=== PATIENT | female | born 1955 | race Caucasian/White ===

== ENCOUNTER 2018-08-10 10:36 | Emergency (ER) | payer OTHER ==
--- NOTE | 2018-08-10 14:26 | ED Physician Documentation ---
History of Present Illness - Stated complaint Stated Complaint: HEAD PX/VISION CHANGES AND PRESSURE - Chief complaint Chief Complaint: Neuro - History obtained from History obtained from: Patient - History of Present Illness Timing: How many weeks ago (2) - Additonal information Additional information: 63-year-old female has developed a sharp stabbing or lancinating pain in the right faith area. She states the pain is confined to the faith area and part of her scalp and above her right eye and in front of her right ear. She has not broken out into a rash. She is complaining of some blurring of her vision. She denies double vision. She is not nauseated and she has no fever. She does state that she does not feel that she is under any stress but she does know that this is near the anniversary of her 's about 4 years ago. Review of Systems Constitutional: denies: Fever, Chills, Myalgias, Fatigue Eyes: reports: Other (blurring of vision of right eye). denies: Decreased vision, Photophobia Ears: denies: Loss of hearing, Ear pain Nose: denies: Rhinorrhea / runny nose, Congestion Throat: denies: Sore throat Cardiac: denies: Chest pain / pressure, Palpitations Respiratory: denies: Dyspnea, Cough GI: denies: Abdominal Pain, Nausea, Vomiting : denies: Dysuria, Frequency Skin: denies: Rash Musculoskeletal: reports: Neck pain. denies: Back pain, Extremity pain Neurologic: reports: Headache. denies: Generalized weakness, Focal weakness, Numbness, Head injury, LOC PD PAST MEDICAL HISTORY - Present Medications Home Medications: Ambulatory Orders Medication Instructions Recorded Confirmed Albuterol Sulf [Ventolin Hfa] 200 puffs INH 08/10/18 08/10/18 Valacyclovir HCl [Valacyclovir] 1,000 mg PO TID #15 tablet 08/10/18 - Allergies Allergies/Adverse Reactions: Allergies Allergy/AdvReac Type Severity Reaction Status Date / Time Sulfa (Sulfonamide Allergy Unknown Verified 08/10/18 11:05 Antibiotics) PD ED PE NORMAL - Vitals Vital signs reviewed: Yes (hypertensive ) - General General: Alert and oriented X 3, No acute distress, Well developed/nourished - HEENT HEENT: Atraumatic, PERRL, EOMI, Ears normal, Moist mucous membranes, Pharynx benign, Dentition benign - Neck Neck: Supple, no meningeal sign, No bony TTP - Cardiac Cardiac: RRR, No murmur - Respiratory Respiratory: No respiratory distress, Clear bilaterally - Abdomen Abdomen: Soft, Non tender - Back Back: No CVA TTP, No spinal TTP - Derm Derm: Normal color, Warm and dry, Other (over the right faith there is subtle erythema that is not present on the left faith. There is no skin breakdown. 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, No motor deficit, No sensory deficit, Normal speech Eye Opening: Spontaneous Motor: Obeys Commands Verbal: Oriented GCS Score: 15 - Psych Psych: Normal mood, Normal affect Results - Vitals Vitals: Vital Signs - 24 hr 08/10/18 11:03 Temperature 36.8 C Heart Rate 75 Respiratory 20 Rate Blood Pressure 136/99 H O2 Saturation 99 Oxygen O2 Source Room air - Rads (name of study) CT head without Radiology: Prelim report reviewed (Impression: Negative nonenhanced head CT.), EMP read indepedently, See rad report Procedures - Bedside sono Bedside sono by EMP: With use of bedside ultrasound the right retina is examined and there is no evidence of detachment. PD MEDICAL DECISION MAKING - ED course Complexity details: reviewed results, re-evaluated patient, considered differential, d/w patient ED course: 63-year-old female with a four-day history of lancinating pain in the right faith has subtle changes to the skin consistent with early shingles and her pain is consistent with this as well as the location. Her retina is examined without evidence of detachment and a CT scan of her head is done to rule out intracranial pathology. We will put her on a course of valacyclovir. Departure - Departure Disposition: 01 Home, Self Care Clinical Impression: Shingles Qualifiers: Herpes zoster complications: without complications Qualified Code(s): B02.9 - Zoster without complications Condition: Stable Instructions: ED Shingles Prescriptions: Valacyclovir HCl [Valacyclovir] 1,000 mg PO TID #15 tablet Forms: Activity restrictions
--- NOTE | 2018-08-10 14:58 | CT Report ---
Reason: right mu-ism pain blurring of vision Procedure Date: 08/10/2018 Accession Number: [id number] / [id number] Procedure: CT - HEAD WO CPT Code: FULL RESULT: EXAM: CT HEAD EXAM DATE: 08/10/2018 02:49 PM. CLINICAL HISTORY: Right mu-ism pain blurring of vision. COMPARISON: None. TECHNIQUE: Multiaxial CT images were obtained from the foramen magnum to the vertex. Reformats: Sagittal and coronal. IV contrast: None. In accordance with CT protocol optimization, one or more of the following dose reduction techniques were utilized for this exam: automated exposure control, adjustment of mA and/or KV based on patient size, or use of iterative reconstructive technique. FINDINGS: Parenchyma: No intraparenchymal hemorrhage. No evidence of mass, midline shift, or CT findings of infarction. Arroyo-white differentiation is distinct. Extraaxial Spaces: Normal for age. No subdural or epidural collections identified. Ventricles: Normal in size and position. Sinuses and Orbits: Imaged paranasal sinuses, orbits, and mastoids show no significant abnormality. Bones: No evidence of fracture or calvarial defect. Other: None. IMPRESSION: Negative nonenhanced head CT. RADIA
[2018-08-10 16:01] VITALS: BP 174/96
== END 2018-08-10 16:11 | disposition home or self-care (01) ==
LOC: ED 10:36
DX: B02.9 Zoster without complications (principal)
CPT/HCPCS: 70450; 99282; 99283

== ENCOUNTER 2019-09-09 17:39 | Outpatient (CLI) | payer OTHER | END 2019-09-09 17:40 | disposition home or self-care (01) | LOC: COV 17:39 | PROVIDERS: ATTEND Family Medicine | DX: R06.02 Shortness of breath (principal); R06.2 Wheezing; R53.83 Other fatigue; R68.83 Chills (without fever) | CPT/HCPCS: 81599 ==

== ENCOUNTER 2019-09-11 09:55 | Emergency (ER) | payer OTHER ==
[2019-09-11] MEDS ORDERED: LORazepam 1 MG TABLET PO STA (10:38)
[2019-09-11] MEDS ORDERED: DEXAMETHASONE 10 MG/ML VIAL PO STA (10:38)
[2019-09-11] MEDS ORDERED: CHERRY SYRUP 10 ML UDC PO ONE (10:38)
[2019-09-11] MEDS ORDERED: ALBUTEROL 1 PUFF INH STA (10:38)
--- NOTE | 2019-09-11 10:41 | ED Physician Documentation ---
PD HPI DYSPNEA - Stated complaint Stated Complaint: SOA - Chief complaint Chief Complaint: Resp - History obtained from History obtained from: Patient - History of Present Illness Timing - onset: How many weeks ago (1) Timing - onset during: Rest Timing - duration: Weeks (1) Timing - details: Gradual onset, Still present Inciting event(s): Emotional event Improved by: Inhaler/neb Worsened by: Allergens Associated symptoms: Wheezing, Anxiety Similar symptoms before: Diagnosis (asthma and anxiety) Recently seen: Not recently seen - Additional information Additional information: 64-year-old female with a history of asthma who uses her inhaler infrequently has had to start using her inhaler frequently over the past week. She has now developed some anxiety associated with this as well and she is feeling anxiety whenever she goes into her office to begin work. She is having some problem with her Internet connection and been able to do her work from her home that is frustrating to her. She has a history of anxiety and has previously taken medication for anxiety on a temporary basis. She is not producing any sputum has not had a fever does not feel like she is sick otherwise. She does have voice clearing which happens to her frequently when she has an asthma exacerbation. She has not been on a course of steroid for 2 years. Review of Systems Constitutional: denies: Fever, Chills, Myalgias Eyes: denies: Decreased vision Ears: denies: Ear pain Nose: denies: Rhinorrhea / runny nose, Congestion Throat: denies: Sore throat Cardiac: denies: Chest pain / pressure, Palpitations Respiratory: reports: Dyspnea, Wheezing. denies: Cough GI: denies: Abdominal Pain, Nausea, Vomiting : denies: Dysuria, Frequency Skin: denies: Rash Musculoskeletal: denies: Neck pain, Back pain, Extremity pain Neurologic: reports: Numbness (to the lips). 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, Breast implants - Present Medications Home Medications: Ambulatory Orders Medication Instructions Recorded Confirmed Albuterol Sulf [Ventolin Hfa 1 - 2 puffs INH Q4HR PRN 09/10/20 09/11/19 Inhaler] Lorazepam [Ativan] 1 mg PO Q6HR PRN #20 tablet 09/11/19 buPROPion [Wellbutrin Sr] 0 mg PO BID 09/11/19 09/11/19 predniSONE [Prednisone] 40 mg PO DAILY #10 tablet 09/11/19 - Allergies Allergies/Adverse Reactions: Allergies Allergy/AdvReac Type Severity Reaction Status Date / Time Sulfa (Sulfonamide Allergy Unknown Verified 09/11/19 10:33 Antibiotics) - Social History Does the pt smoke?: No Smoking Status: Never smoker Does the pt drink ETOH?: Yes Does the pt have substance abuse?: No - Immunizations Immunizations: TDAP >10years/unknown PD ED PE NORMAL - Vitals Vital signs reviewed: Yes (hypertensive ) - General General: Alert and oriented X 3, No acute distress, Well developed/nourished - HEENT HEENT: Atraumatic, PERRL, EOMI, Ears normal, Moist mucous membranes, Pharynx benign, Dentition benign - Neck Neck: Supple, no meningeal sign, No bony TTP - Cardiac Cardiac: RRR, No murmur - Respiratory Respiratory: No respiratory distress, Clear bilaterally - Abdomen Abdomen: Soft, Non tender - Back Back: No CVA TTP, No spinal TTP - Derm Derm: Normal color, Warm and dry, No rash - Extremities Extremities: No deformity, No edema - Neuro Neuro: Alert and oriented X 3, 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, No motor deficit, No sensory deficit, Normal speech Eye Opening: Spontaneous Motor: Obeys Commands Verbal: Oriented GCS Score: 15 - Psych Psych: Normal mood, Normal affect Results - Vitals Vitals: Vital Signs - 24 hr 09/11/19 09/11/19 09/11/19 10:05 11:00 11:15 Temperature 37.1 C Heart Rate 85 80 78 Respiratory 20 16 20 Rate Blood Pressure 136/81 H 116/82 H O2 Saturation 100 97 Oxygen O2 Source Room air PD MEDICAL DECISION MAKING - ED course Complexity details: reviewed results, re-evaluated patient, considered differential, d/w patient ED course: 64-year-old female who is developed an asthma exacerbation and she has developed some anxiety in the 2 of the conditions together have played off of each other worse and worse over the past week. She has come to the emergency department now requesting further treatment. She is having some improvement with her inhaler but not with her anxiety.She is administered albuterol with a spacer here in the emergency department and as well as Ativan. A chest x-ray is without evidence of infiltrate examination is without evidence of elements of infection. Departure - Departure Disposition: 01 Home, Self Care Clinical Impression: Anxiety Asthma exacerbation Qualifiers: Asthma severity: mild Asthma persistence: intermittent Qualified Code(s): J45.21 - Mild intermittent asthma with (acute) exacerbation Condition: Stable Instructions: ED Stress React, ED Reactive Airway Disease, ED Panic Attack Follow-Up: Courtney Moon PA-C [Primary Care Provider] - Prescriptions: Lorazepam [Ativan] 1 mg PO Q6HR PRN #20 tablet PRN Reason: Anxiety predniSONE [Prednisone] 40 mg PO DAILY #10 tablet Discharge Date/Time: 09/11/19 12:20
[2019-09-11 11:05] VITALS: BP 116/82
--- NOTE | 2019-09-11 11:24 | XRAY Report ---
Reason: chest pain Procedure Date: 09/11/2019 Accession Number: [id number] / [id number] Procedure: XR - Chest 1 View X-Ray CPT Code: 57477 Final Report FULL RESULT: EXAM: CHEST RADIOGRAPHY EXAM DATE: 09/11/2019 10:57 AM. CLINICAL HISTORY: Chest pain. COMPARISON: None. TECHNIQUE: 1 view. FINDINGS: Lungs/Pleura: No focal opacities evident. No pleural effusion. No pneumothorax. Mediastinum: Within exam limitations, the cardiomediastinal contour is normal. Other: Bilateral breast implants are present. IMPRESSION: Bilateral breast implants present, otherwise unremarkable exam. RADIA
== END 2019-09-11 12:20 | disposition home or self-care (01) ==
LOC: ED 09:55
DX: J45.21 Mild intermittent asthma with (acute) exacerbation (principal); F41.9 Anxiety disorder, unspecified; Z98.82 Breast implant status
CPT/HCPCS: 71045; 94640; 94664; 99283; 99284; A9270; J8499

== ENCOUNTER 2020-02-15 09:51 | Emergency (ER) | payer OTHER ==
--- NOTE | 2020-02-15 10:14 | ED Physician Documentation ---
History of Present Illness - Stated complaint Stated Complaint: CHEST PX - Chief complaint Chief Complaint: Cardiac - History obtained from History obtained from: Patient - Additonal information Additional information: Patient comes emergency department complaining of left breast pain that began 3 days ago after her dog late as had on her breast. Patient states she had silicone breast implants placed about 36 years ago and that they have given her no problems since. She has noticed a sweat slight "lump" in her breast, but has not noticed any distortion otherwise she has not noticed any redness or swelling. She states the dog did not lay its head down forcefully and she is not sure why it caused it to her. However, she states that the pain has not gone away since. It is worse if she moves in such a way that her breast moves. No other complaints at this time. No fevers, chills, cough, or deeper chest pain. No other injury. Review of Systems Ten Systems: 10 systems reviewed and negative Constitutional: denies: Fever, Chills Eyes: reports: Reviewed and negative Ears: reports: Reviewed and negative Nose: reports: Reviewed and negative Throat: reports: Reviewed and negative Cardiac: reports: Chest pain / pressure (Breast) Respiratory: denies: Dyspnea, Cough GI: reports: Reviewed and negative : reports: Reviewed and negative Skin: reports: Reviewed and negative Musculoskeletal: reports: Reviewed and negative Neurologic: reports: Reviewed and negative Psychiatric: reports: Reviewed and negative Endocrine: reports: Reviewed and negative Immunocompromised: reports: Reviewed and negative PD PAST MEDICAL HISTORY - Past Medical History Respiratory: Asthma Psych: Anxiety - Past Surgical History Past Surgical History: Yes 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, Breast implants - Present Medications Home Medications: Ambulatory Orders Medication Instructions Recorded Confirmed Albuterol Sulf [Ventolin Hfa 1 - 2 puffs INH Q4HR PRN 09/11/19 09/11/19 Inhaler] Lorazepam [Ativan] 1 mg PO Q6HR PRN #20 tablet 09/11/19 buPROPion [Wellbutrin Sr] 0 mg PO BID 09/11/19 09/11/19 predniSONE [Prednisone] 40 mg PO DAILY #10 tablet 09/11/19 - Allergies Allergies/Adverse Reactions: Allergies Allergy/AdvReac Type Severity Reaction Status Date / Time Sulfa (Sulfonamide Allergy Unknown Verified 09/11/19 10:33 Antibiotics) - Social History Does the pt smoke?: No Smoking Status: Never smoker Does the pt drink ETOH?: Yes Does the pt have substance abuse?: No - Immunizations Immunizations: TDAP >10years/unknown PD ED PE NORMAL - Vitals Vital signs reviewed: Yes - General General: Alert and oriented X 3, No acute distress - HEENT HEENT: Atraumatic, PERRL, EOMI, Moist mucous membranes - Neck Neck: Supple, no meningeal sign - Cardiac Cardiac: RRR, No murmur, Strong equal pulses - Respiratory Respiratory: No respiratory distress, Clear bilaterally - Abdomen Abdomen: Soft, Non tender, Non distended - Derm Derm: Normal color, Warm and dry, No rash, Other (No induration, mass, erythema, or edema of the left breast compared to the right.) - Extremities Extremities: No deformity - Neuro Neuro: Alert and oriented X 3 - Psych Psych: Normal mood, Normal affect PD ED PE EXPANDED - Free text exam Free text exam: Breasts are symmetrical bilaterally. No peau d'orange or nipple/areola distortion. No nipple discharge. No palpable mass. Patient does have symmetrical, palpable breast implants. No erythema or streaking. Results - Vitals Vitals: Vital Signs - 24 hr 02/15/20 02/15/20 02/15/20 10:03 10:06 11:28 Temperature 20.4 C L 36.8 C Heart Rate 77 71 75 Respiratory 16 16 16 Rate Blood Pressure 146/90 H 150/100 H 178/92 H O2 Saturation 99 98 98 Oxygen O2 Source Room air - EKG (time done) 1001 Rate: Rate (enter#) (71) Rhythm: NSR [place]: Normal Intervals: Normal NC QRS: Normal Ischemia: Normal ST segments, Non specific changes Compare to prior EKG: Old EKG unavailable Computer interpretation: Agree with computer - Rads (name of study) CXR Radiology: Final report received, EMP read indepedently, See rad report (neg) PD MEDICAL DECISION MAKING - ED course Complexity details: reviewed results, re-evaluated patient, considered differential, d/w patient ED course: Patient was worked up with chest x-ray and EKG, which were unremarkable. The pt stated to nursing staff that she had mainly come because she hoped to get her mammogram expedited. However, she was informed that we are unable to do anything to expedite mammo scheduling from the ED, and that she should continue to work with her PCP on this. I have discussed the case with US, who states that a mammogram will be much superior to a soft tissue US if no abscess is suspected. Pt has been advised of this, as original plan was to possibly get an US of the breast in the ED. We have discussed the usual indications for return. Departure - Departure Disposition: 01 Home, Self Care Clinical Impression: Breast pain Condition: Stable Comments: Your chest x-ray and EKG look good. Initially, our plan was to do a breast ultrasound here, but after discussing the matter with the breast specialist, it is better to just get a mammogram done. These are not done emergently from the emergency department, and you will need to continue with your plans to have one as an outpatient. Please continue the process of getting scheduled for this. There is no way to expedite this through the emergency department, and you will need to work with your primary doctor. At this point in time, there is no palpable mass/tumor, and there is no evidence of infection. Your breasts are symmetrical and there is no obvious evidence of damage to your breast implant. However, this cannot be fully evaluated without further appropriate imaging, in this case and mammogram. Discharge Date/Time: 02/15/20 11:29
--- NOTE | 2020-02-15 10:30 | XRAY Report ---
PROCEDURE: Chest 1 View X-Ray INDICATIONS: chest pain TECHNIQUE: One view of the chest was acquired. COMPARISON: 09/11/2019 FINDINGS: Surgical changes and devices: Peripherally calcified bilateral breast implants. No change in appearan ce of the calcified capsules since the prior study. Lungs and pleura: No pleural effusions or pneumothorax. Lungs are clear. Mediastinum: Mediastinal contours appear normal. Heart size is normal. Bones and chest wall: No suspicious bony lesions. Overlying soft tissues appear unremarkable. IMPRESSION: 1. No change in the peripherally calcified breast implant capsules. Change in the underlying implant itself cannot be discerned on the study. 2. Normal underlying heart and lungs. Reviewed by: Imelda Hernandez MD on 02/15/2020 10:28 AM PDT Approved by: Imelda Hernandez MD on 02/15/2020 10:28 AM PDT Station ID: [id number]
[2020-02-15 11:29] VITALS: BP 178/92
== END 2020-02-15 11:29 | disposition home or self-care (01) ==
LOC: ED 09:51
DX: N64.4 Mastodynia (principal); Z98.82 Breast implant status
CPT/HCPCS: 71045; 80053; 83690; 84484; 85025; 93005; 99282; 99284

== ENCOUNTER 2020-06-24 13:16 | Outpatient (CLI) | payer OTHER ==
[2020-06-24] MEDS ORDERED: ALBUTEROL 1 PUFF INH STA (15:18)
== END 2020-06-24 13:17 | disposition home or self-care (01) ==
LOC: RT 13:16
PROVIDERS: ATTEND Physician Assistant Medical
DX: J45.901 Unspecified asthma with (acute) exacerbation (principal)
CPT/HCPCS: 94060

== ENCOUNTER 2020-06-28 16:46 | Outpatient (CLI) | payer OTHER ==
[2020-06-28 17:05] LABS: BASOPHILS % (AUTO) 0.5 %; EOSINOPHILS # (AUTO) 0.1 10^3/uL (0.0-0.7); EOSINOPHILS % (AUTO) 1.7 %; HGB - HEMOGLOBIN 14.6 g/dL (12.0-16.0); LYMPHOCYTES # (AUTO) 1.8 10^3/uL (1.5-3.5); MEAN CORPUSCULAR HEMOGLOBIN 32.6 pg (27.0-31.0); MEAN CORPUSCULAR HGB CONC 33.6 g/dL (32.0-36.0); MEAN CORPUSCULAR VOLUME 96.9 fL (81.0-99.0); MEAN PLATELET VOLUME 9.6 fL (7.9-10.8); MONOCYTES # (AUTO) 0.3 10^3/uL (0.0-1.0); MONOCYTES % (AUTO) 4.9 %; NEUTROPHILS # (AUTO) 4.2 10^3/uL (1.5-6.6); NEUTROPHILS % (AUTO) 64.7 %; PLT - PLATELET COUNT 320 10^3/uL (130-450); RED BLOOD COUNT 4.48 10^6/uL (4.20-5.40); RED CELL DISTRIBUTION WIDTH 12.5 % (12.0-15.0); WHITE BLOOD COUNT 6.5 x10^3/uL (4.8-10.8)
[2020-06-28 17:17] LABS: ALBUMIN 4.2 g/dL (3.2-5.5); ALBUMIN/GLOBULIN RATIO 1.4 (1.0-2.2); BILIRUBIN,TOTAL 0.5 mg/dL (0.2-1.0); CALCIUM 9.5 mg/dL (8.5-10.3); CREATININE 0.8 mg/dL (0.4-1.0); TOTAL PROTEIN 7.2 g/dL (6.7-8.2)
== END 2020-06-28 16:47 | disposition home or self-care (01) ==
LOC: LAB 16:46
PROVIDERS: ATTEND Physician Assistant Medical
DX: R53.83 Other fatigue (principal); R06.09 Other forms of dyspnea; Z79.899 Other long term (current) drug therapy
CPT/HCPCS: 36415; 80053; 84443; 85025

== ENCOUNTER 2020-07-05 07:47 | Outpatient (CLI) | payer OTHER ==
--- NOTE | 2020-07-05 09:19 | CARDIAC PROCEDURE NOTE ---
DATE OF SERVICE: 07/05/2020 Physician: Erica Mcclellan MD, [facility] INDICATION: Exertional dyspnea. CARDIAC RISK FACTORS: Postmenopausal status, ex-smoker who quit 5 years ago. DESCRIPTION OF PROCEDURE: After signing informed consent, a Modified Joni- protocol stress test was performed. There was no cardiac imaging ordered with this test. RESTING HEART RATE: 82. PEAK HEART RATE: 133 (86% predicted maximum heart rate for age). RESTING BLOOD PRESSURE: 131/27. PEAK BLOOD PRESSURE: 183/92. The patient exercised for 10 minutes on a Modified Joni-protocol stress test (the Modified protocol was chosen since she was short of breath just walking in the hallway). The patient had no chest pain during exercise. She rated her perceived exertion at 14/20 at peak. The patient had mild shortness of breath, which quickly worsened to moderate shortness of breath, and she was severely short of breath at peak and requested that the test be stopped. Oxygen saturation was 94% to 98% on room air throughout the test. There were rare PVCs with exercise. There were frequent PVCs in immediate recovery and 2 runs of ventricular bigeminy in recovery. RESTING EKG: Normal sinus rhythm, left atrial enlargement, otherwise within normal limits. EKG AT PEAK: No ST segment changes or T-wave changes occurred to suggest ischemia. SUMMARY: 1. Essentially normal resting EKG. 2. Fair to poor exercise tolerance. 3. No ischemic changes developed by EKG criteria. IMPRESSION: 1. Normal cardiac stress test. 2. Severe shortness of breath despite no desaturations in oxygen level. 3. This patient's main complaint was "throat tightness" causing inability to get air, hoarseness developed with her short of breath and coughing did not help her clear her airway. There is an endoscopy pending to evaluate reflux. She also has a scar on the L anterior neck, reportedly from a cervical fusion. This history of c-spine problems could in some way be impinging on her upper airway. RECOMMENDATIONS: Consider ENT evaluation, consider CT imaging of the neck, proceed with upper endoscopy. cc: Courtney Moon PA-C TD: 07/05/2020 09:10 MTDShital
== END 2020-07-05 07:48 | disposition home or self-care (01) ==
LOC: DI 07:47
PROVIDERS: ATTEND Physician Assistant Medical
DX: R06.09 Other forms of dyspnea (principal)

== ENCOUNTER 2020-08-17 11:02 | Emergency (ER) | payer OTHER ==
[2020-08-17] MEDS ORDERED: DEXAMETHASONE 10 MG/ML VIAL IVP STA (11:27)
--- NOTE | 2020-08-17 11:42 | XRAY Report ---
PROCEDURE: Chest 1 View X-Ray INDICATIONS: chest pain TECHNIQUE: One view of the chest was acquired. COMPARISON: 02/15/2020 FINDINGS: Surgical changes and devices: Bilateral breast implants are seen and are grossly intact. Fusion hardw are in lower cervical spine is again seen.. Lungs and pleura: No pleural effusions or pneumothorax. Lungs are clear. Mediastinum: Mediastinal contours appear normal. Heart size is normal. Bones and chest wall: No suspicious bony lesions. Overlying soft tissues appear unremarkable. IMPRESSION: No acute cardiopulmonary pathology. Reviewed by: William Hdz MD on 08/17/2020 11:41 AM PDT Approved by: William Hdz MD on 08/17/2020 11:41 AM PDT Station ID: [id number]
[2020-08-17 11:43] LABS: BASOPHILS % (AUTO) 0.7 %; EOSINOPHILS # (AUTO) 0.1 10^3/uL (0.0-0.7); EOSINOPHILS % (AUTO) 1.5 %; HCT - HEMATOCRIT 43.4 % (37.0-47.0); HGB - HEMOGLOBIN 14.7 g/dL (12.0-16.0); LYMPHOCYTES # (AUTO) 1.6 10^3/uL (1.5-3.5); MEAN CORPUSCULAR HEMOGLOBIN 32.1 pg (27.0-31.0); MEAN CORPUSCULAR HGB CONC 33.9 g/dL (32.0-36.0); MEAN CORPUSCULAR VOLUME 94.8 fL (81.0-99.0); MEAN PLATELET VOLUME 9.9 fL (7.9-10.8); MONOCYTES # (AUTO) 0.4 10^3/uL (0.0-1.0); MONOCYTES % (AUTO) 9.5 %; NEUTROPHILS # (AUTO) 1.9 10^3/uL (1.5-6.6); NEUTROPHILS % (AUTO) 48.3 %; PLT - PLATELET COUNT 281 10^3/uL (130-450); RED BLOOD COUNT 4.58 10^6/uL (4.20-5.40); RED CELL DISTRIBUTION WIDTH 12.3 % (12.0-15.0)
[2020-08-17 12:11] LABS: ALBUMIN 4.3 g/dL (3.2-5.5); ALBUMIN/GLOBULIN RATIO 1.5 (1.0-2.2); BILIRUBIN,TOTAL 0.7 mg/dL (0.2-1.0); CALCIUM 9.9 mg/dL (8.5-10.3); CREATININE 0.9 mg/dL (0.4-1.0); POTASSIUM 3.9 mmol/L (3.5-5.0); TOTAL PROTEIN 7.2 g/dL (6.7-8.2)
[2020-08-17] MEDS ORDERED: IOVERSOL 320 100 ML VIAL IVP ONE ×3 (12:45→15:46)
--- NOTE | 2020-08-17 13:46 | CT Report ---
PROCEDURE: SOFT TISSUE NECK W INDICATIONS: dyspnea persistant upper airway CONTRAST: IV CONTRAST: Optiray 320 ml: 100 PO CONTRAST: *NO PO CONTRAST TECHNIQUE: After the administration of intravenous contrast, 3.0 mm axial sections acquired from the sella to th e aortic arch. Additional oblique axial 3.0 mm sections acquired through the pharynx. 3 mm thick co antonino reformats were generated. For radiation dose reduction, the following was used: automated exp osure control, adjustment of mA and/or kV according to patient size. COMPARISON: None. FINDINGS: Image quality: Excellent. Lymph nodes: No enlarged lymph nodes seen throughout the neck. Vessels: Visualized vasculature appears patent. Neck spaces: The oropharynx, nasopharynx, and pharynx demonstrate no mucosal lesions. The vocal cor ds, false vocal cords, pyriform sinuses, epiglottis, vallecula, and tongue base all appear normal. E xtramucosal spaces appear unremarkable. Specifically there does not appear to be parapharyngeal absce ss formation or hyperemic inflammatory change along the parapharyngeal soft tissues. There are severa l normal-sized lymph nodes incidentally noted posterior to the angle of the jaw, but no abnormally en larged or centrally necrotic nodes are found. Glands: The parotid and submandibular glands appear normal. The thyroid is normal in size. Miscellaneous: Visualized brain and orbits appear normal. Lung apices appear clear. Superficial so ft tissues appear normal. Note is made of mild alveolar prominence within the lung apices are reviewe d, but this is frequently the case in the setting of evaluation through this area for soft tissue abn ormalities. The inspiratory volume is reduced and mild atelectasis is the general cause for this appe arance. No mass or focal pneumonia found. Bones: No suspicious bony lesions. Visualized sinuses and mastoids appear unremarkable. IMPRESSION: 1. No parapharyngeal abscess or evidence of tonsillar pillar or salivary gland inflammation is seen. 2. No impingement on the tracheal airway is seen. Several scattered normal-sized lymph nodes are seen posterior to the angle of the jaw, but without mass effect or evidence of internal inflammation. 3. The lungs visualized at the lowest margin of the scanning show a mild alveolar prominence pattern but this is frequently seen when viewing the lung parenchyma in this area during soft tissue neck CT scanning. This is secondary to reduced inspiratory volume at time of scanning and generalized microat electasis. No patchy pneumonia, no evidence of atypical pneumonia is seen. Reviewed by: Julio Panda MD on 08/17/2020 1:45 PM PDT Approved by: Julio Panda MD on 08/17/2020 1:45 PM PDT Station ID: [id number]
--- NOTE | 2020-08-17 15:14 | ED Physician Documentation ---
PD HPI DYSPNEA - Stated complaint Stated Complaint: SOA - Chief complaint Chief Complaint: Resp - History obtained from History obtained from: Patient - History of Present Illness Timing - onset: How many months ago (4) Timing - onset during: Light activity Timing - duration: Months (4) Timing - details: Gradual onset, Still present Inciting event(s): No: URI, Allergic rxn/anaphylaxis Improved by: Rest Worsened by: Exertion, Other (talking) Associated symptoms: No: Fever, Cough, Hemoptysis, Wheezing, Chest pain / discomfort, Palpitations, Diaphoresis, Bilateral edema, Unilateral edema, Anxiety Similar symptoms before: No diagnosis Recently seen: Clinic - Additional information Additional information: 65-year-old female has developed shortness of breath in May of this year and she explains this as a shortness of breath if she tries to exert herself or now if she even tries to talk too much. She does not feel there is any wheezing associated with this and she has not had improvement with a rescue inhaler. She has been into see her primary care doctor she has been in to be evaluated by GI and has had manometry study as well as an upper GI and she is getting ready to go see an ENT. She has some hardware in her neck and she had an incident with hardware in her foot where the screw was backed out after period of time she is wondering if there is some impingement on her airway related to that. Review of Systems Constitutional: denies: Fever Eyes: denies: Decreased vision Ears: denies: Ear pain Nose: denies: Congestion Throat: denies: Sore throat Cardiac: denies: Chest pain / pressure Respiratory: reports: Dyspnea. denies: Cough, Wheezing GI: denies: Abdominal Pain, Nausea, Vomiting : denies: Dysuria, Frequency Skin: denies: Rash Musculoskeletal: denies: Neck pain, Back pain, Extremity pain Neurologic: denies: Generalized weakness, Focal weakness, Numbness PD PAST MEDICAL HISTORY - Past Medical History Past Medical History: Yes Respiratory: Asthma Psych: Anxiety - Past Surgical History Past Surgical History: Yes Ortho: Spine surgery /[facility]END[facility]: Hysterectomy, Breast implants - Present Medications Home Medications: Ambulatory Orders Medication Instructions Recorded Confirmed Albuterol Sulf [Ventolin Hfa 1 - 2 puffs INH Q4HR PRN 09/11/19 09/11/19 Inhaler] Lorazepam [Ativan] 1 mg PO Q6HR PRN #20 tablet 09/11/19 buPROPion [Wellbutrin Sr] 0 mg PO BID 09/11/19 09/11/19 predniSONE [Prednisone] 40 mg PO DAILY #10 tablet 09/11/19 - Allergies Allergies/Adverse Reactions: Allergies Allergy/AdvReac Type Severity Reaction Status Date / Time Sulfa (Sulfonamide Allergy Unknown Verified 08/17/20 11:15 Antibiotics) - Social History Does the pt smoke?: No Smoking Status: Never smoker Does the pt drink ETOH?: Yes Does the pt have substance abuse?: No - Immunizations Immunizations: TDAP >10years/unknown PD ED PE NORMAL - Vitals Vital signs reviewed: Yes (hypertensive ) - General General: Alert and oriented X 3, Well developed/nourished, Other (65-year-old female who appears tachypneic at rest and whispers instead of talking in full voice has no obvious audible wheeze.) - HEENT HEENT: Atraumatic, PERRL, EOMI, Ears normal, Moist mucous membranes, Pharynx benign, Dentition benign - Neck Neck: Supple, no meningeal sign, No bony TTP - Cardiac Cardiac: RRR, No murmur - Respiratory Respiratory: No respiratory distress, Clear bilaterally - Abdomen Abdomen: Soft, Non tender - Back Back: No CVA TTP, No spinal TTP - Derm Derm: Normal color, Warm and dry, No rash - Extremities Extremities: No deformity, No edema - Neuro Neuro: Alert and oriented X 3, 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, No motor deficit, No sensory deficit, Other (wispers) Eye Opening: Spontaneous Motor: Obeys Commands Verbal: Oriented GCS Score: 15 - Psych Psych: Normal mood, Normal affect Results - Vitals Vitals: Vital Signs - 24 hr 08/17/20 08/17/20 08/17/20 11:10 12:00 14:57 Temperature 36.1 C L Heart Rate 85 76 87 Respiratory 11 L 16 12 Rate Blood Pressure 159/94 H 139/92 H 121/87 H O2 Saturation 100 96 97 Oxygen O2 Source Room air - Labs Labs: Laboratory Tests 08/17/20 08/17/20 08/17/20 11:31 11:31 11:31 WBC 4.0 L RBC 4.58 Hgb 14.7 Hct 43.4 MCV 94.8 MCH 32.1 H MCHC 33.9 RDW 12.3 Plt Count 281 MPV 9.9 Neut # (Auto) 1.9 Lymph # (Auto) 1.6 [place] # (Auto) 0.4 Eos # (Auto) 0.1 Baso # (Auto) 0.0 Absolute Nucleated RBC 0.00 Nucleated RBC % 0.0 D-Dimer 212.4 Sodium 143 Potassium 3.9 Chloride 103 Carbon Dioxide 26 Anion Gap 14.0 H BUN 15 Creatinine 0.9 Estimated GFR (MDRD) 63 L Glucose 106 H Calcium 9.9 Total Bilirubin 0.7 AST 22 ALT 22 Alkaline Phosphatase 60 Troponin I High Sens B-Natriuretic Peptide Total Protein 7.2 Albumin 4.3 Globulin 2.9 Albumin/Globulin Ratio 1.5 Lipase 46 08/17/20 08/17/20 11:31 15:45 WBC RBC Hgb Hct MCV MCH MCHC RDW Plt Count MPV Neut # (Auto) Lymph # (Auto) [place] # (Auto) Eos # (Auto) Baso # (Auto) Absolute Nucleated RBC Nucleated RBC % D-Dimer Sodium Potassium Chloride Carbon Dioxide Anion Gap BUN Creatinine Estimated GFR (MDRD) Glucose Calcium Total Bilirubin AST ALT Alkaline Phosphatase Troponin I High Sens 3.5 B-Natriuretic Peptide 21 Total Protein Albumin Globulin Albumin/Globulin Ratio Lipase - Rads (name of study) chest Radiology: Prelim report reviewed (Impression: No acute cardiopulmonary pathology.), EMP read indepedently, See rad report CT soft tissue neck Radiology: Prelim report reviewed (Impression: 1. No parapharyngeal abscess or evidence of tonsillar pillar or salivary gland inflammation is seen. No im pingement on the tracheal airway is seen. Several scattered normal-sized lymph nodes are seen posterior to the angle of the jaw, but without mass-effect or evidence of internal in), Final report received ( of internal inflammation. The lungs visualized at the lowest margin the scanning show a mild alveolar prominence pattern but this is frequently seen when viewing the lung parenchyma in this area during soft tissue neck CT scanning. This is secondary to reduced inspiratory volume at time of scanni), EMP read indepedently, See rad report ( at time of scanning and generalized microatelectasis. No patchy pneumonia, no evidence of atypical pneumonia is seen.) PD MEDICAL DECISION MAKING - ED course Complexity details: reviewed old records, reviewed results, re-evaluated patient, considered differential, d/w patient ED course: 65-year-old female with a 4-month history of exertional dyspnea without wheezing or infection is concerned about the possibility of upper airway obstruction secondary to hardware in her neck. There is no demonstrated upper airway impingement on soft tissue scanning of the neck. The patient does have persistent exertional dyspnea and a negative D-dimer. Her symptoms have persisted long enough she has had enough other work-up that we are pursuing a pulmonary angiogram to rule out pulmonary embolus as a cause for her exertional dyspnea. Departure - Departure Disposition: 01 Home, Self Care Clinical Impression: Dyspnea Qualifiers: Dyspnea type: dyspnea on exertion Qualified Code(s): R06.00 - Dyspnea, unspecified Condition: Stable Instructions: ED Dyspnea Shortness of Breath Follow-Up: Courtney Moon PA-C [Primary Care Provider] - Comments: Today we did not discover any upper airway impingement to explain your dyspnea. We are recommending that you have a CT scan down of your pulmonary vessels to rule out pulmonary embolism. Your screening test for this was negative but your symptoms are consistent with the possibility of this. Your symptoms have been present for 4 months and this study should be done as an outpatient as soon as possible. Call your primary care doctor for a referral for this study.
[2020-08-17] MEDS ORDERED: SODIUM CHLORIDE 0.9% 1,000 ML IV STA (15:44)
[2020-08-17] MEDS ORDERED: IBUPROFEN 600 MG TABLET PO STA (16:56)
[2020-08-17 17:23] VITALS: BP 137/95
--- OUTSIDE RECORDS SUMMARY | 2020-08-23 00:54 | EXTERNAL MEDICAL SUMMARY RPT | Continuity of Care Document ---
:1955 Demographics Phone Unavailable Preferred Language Afghan Marital Status Unknown Protestant Affiliation Unknown Race Unknown Ethnic Group Unknown Author Organization [facility] Address [address] [place] [address] Phone Care Team Providers Name Role Phone Miscellaneous Unavailable Unavailable Problems date description facility [id number] Encounter for screening for other viral diseases [facility] Procedures date description facility [id number] [facility] Social History date description facility [id number]
== END 2020-08-17 17:22 | disposition home or self-care (01) ==
LOC: ED 11:02
DX: R06.09 Other forms of dyspnea (principal); J45.909 Unspecified asthma, uncomplicated; Z98.1 Arthrodesis status
CPT/HCPCS: 36415; 70491; 71045; 80053; 83690; 83880; 84484; 85025; 85379; 96361; 96374; 99283; 99284; A9270; Q9967